=== PATIENT | male | born 1970 | race Caucasian/White ===

== ENCOUNTER → 2017-12-31 10:44 | Outpatient (CLI) | payer OTHER, SELFPAY ==
--- NOTE | 2017-12-31 | DI.ECHO.S_ITS ---
[facility] +---------+ : : [address] : : : : [id number] : : : : Phone: [phone]+ Echocardiogram Report + + :Name: CODY DANIELLE Study Date: 12/31/2017 Height: 68 in : :[facility] Exam Location: [facility] Weight: 185 lb : : Gender: Male BSA: 2.0 m2 : :: 1970 Age: 47 yrs BP: 118/80 mmHg: :Reason For Study: CHEST PAIN : : Performed By: Erwin Gilmore : :Referring: DARRYL CASTILLO : + + Interpretation Summary 1. Normal left ventricular size, wall thickness and systolic function with an estimated EF of 60-65% 2. Normal right ventricular size and systolic function. 3. No valvular pathology appreciated. There is no old study available for comparison Procedure: A two-dimensional transthoracic echocardiogram with color flow and Doppler was performed. The study quality was technically good. There is no prior echocardiogram noted for this patient. The patient was in normal sinus rhythm during the exam. Left Ventricle: The left ventricle is normal in size. There is normal left ventricular wall thickness. The ejection fraction is estimated to be 60-65%. No focal wall motion abnormalities appreciated. Right Ventricle: The right ventricle is normal in size and function. Atria: Both atria are normal in size. no color doppler evidence for an ASD. Mitral Valve: The mitral valve is normal in structure and function. There is trace mitral regurgitation. Aortic Valve: The aortic valve is trileaflet. The aortic valve opens well. There is trace aortic regurgitation. Tricuspid Valve: The tricuspid valve leaflets are thin and pliable. There is a trace or physiologic amount of tricuspid regurgitation. Pulmonary artery pressures cannot be estimated because of the lack of a measurable TR jet velocity. Pulmonic Valve: The pulmonic valve is normal in structure and function. There is trace pulmonic regurgitation. Great Vessels: The aortic root is normal size. The dimensions of the ascending aorta are normal. The IVC is of normal diameter and collapses greater than 50% with a sniff. This suggests a low right atrial pressure of 3 mm Hg. Pericardium/ Pleura There is no pericardial effusion. There is no pleural effusion. MMode/2D Measurements & Calculations LVIDd: 4.6 cm Ao root diam: 3.4 cm LVIDs: 3.1 cm Aortic Jxn: 2.6 cm FS: 31.6 % asc Aorta Diam: 3.3 cm EPSS: 0.21 cm Ao Arch Diam (Prox Trans): 2.9 cm IVSd: 0.96 cm LVPWd: 1.0 cm LV quevedo. diameter/BSA (cm/m^2): 2.3 LV sys. diameter/BSA (cm/m^2): 1.6 LA dimension: 3.6 cm RA long axis: 4.7 cm LA A2 area: 18.5 cm2 RA area: 14.3 cm2 LA A4 area: 16.1 cm2 RA vol: 37.5 ml LA length (vol): 5.1 cm RA : 19.0 ml/m2 LA vol: 49.3 ml IVC diam: 1.7 cm LA vol index: 24.9 ml/m2 Doppler Measurements & Calculations Ao V2 max: 105.5 cm/sec MV E max regis: 57.8 cm/sec Ao V2 mean: 74.5 cm/sec MV A max regis: 53.6 cm/sec Ao max P.5 mmHg MV E/A: 1.1 Ao mean P.4 mmHg Med Peak E' Regis: 14.0 cm/sec Ao V2 VTI: 16.9 cm E/E' med: 4.1 MV dec time: 0.20 sec PA V2 max: 88.0 cm/sec PA V2 mean: 59.8 cm/sec PA mean P.6 mmHg PA pr(Accel): 31.6 mmHg PA Accel Time: 0.10 sec Reading Physician:LANDON
== END ==
PROVIDERS: Visit Provider Physician Assistant
DX: R07.9 Chest pain, unspecified (principal)
CPT/HCPCS: 93306

== ENCOUNTER → 2021-03-14 12:29 | Outpatient (CLI) | payer OTHER, SELFPAY ==
--- NOTE | 2021-03-14 | DI.MRI.S_ITS ---
PROCEDURE: MR HEAD/BRAIN WO CON INDICATIONS: Other symptoms and signs involving emotional state TECHNIQUE: Noncontrast axial T1 spin echo, axial T2 fast spin echo, sagittal and axial FLAIR, coronal T2 fast spin echo, axial gradient echo, axial diffusion and ADC through the brain. COMPARISON: None. FINDINGS: Image quality: Excellent. CSF Spaces: Basal cisterns are patent. No extra-axial fluid collections. Ventricles are normal in size and shape. Brain: No intracranial masses or hemorrhage. Gonzalez/white matter interface is normal. Brainstem appears normal. Diffusion-weighted images demonstrate no acute ischemic insult. No chronic ischemic insults. Normal intravascular flow voids are present. Skull and face: Calvarium has normal marrow signal. Orbits appear normal. Sinuses: Large mucous retention cyst versus polyp noted in the right maxillary sinus. The mastoids are clear. IMPRESSION: 1. No intracranial disease process. 2. No abnormal intracranial mass or mass effect. 3. No abnormal intracranial signal. 4. No areas of encephalomalacia. Dictated by: Tessa Johnston MD, PhD on 03/14/2021 at 13:33 Approved by: Tessa Johnston MD, PhD on 03/14/2021 at 13:37
== END ==
PROVIDERS: Referring Provider Family Medicine; Visit Provider Family Medicine
DX: R45.89 Other symptoms and signs involving emotional state (principal)
CPT/HCPCS: 70551

== ENCOUNTER → 2022-11-03 13:00 | Outpatient (CLI) | payer OTHER, SELFPAY ==
--- NOTE | 2022-11-03 | DI.MRI.S_ITS ---
PROCEDURE: MR ABDOMEN WO/W CON INDICATIONS: ABNORMAL CT OF PANCREAS TECHNIQUE: Coronal HASTE, axial 2D FLASH in- and [id number]; axial breath-hold T2 FSE with fat saturation from the hepatic dome to the iliac crests. Oblique coronal thin-slice and radial thick slab HASTE through the biliary system. Dynamic axial VIBE during administration of contrast. Post-contrast coronal VIBE or 2D FLASH with fat saturation from the hepatic dome to the iliac crests. Optional diffusion weighted imaging and ADC may be performed. COMPARISON: CT 08/26/2022. FINDINGS: Image quality: Excellent. Pancreas and biliary system: Pancreas has a normal T1 hyperintense signal throughout. No pancreatic ductal dilation. No solid mass. There is mild interspace to fat, with relative sparing of the tail. No abnormal foci of restricted diffusion. No biliary dilation. Solid organs: Liver is normal in size and enhancement. Gallbladder is unremarkable. Spleen is normal in size and enhancement. No adrenal nodules. Kidneys are normal in size and enhancement, without hydronephrosis. Nodes and vessels: No retroperitoneal or mesenteric adenopathy by size criteria. Aorta and inferior vena cava are normal in size. Bowel and peritoneum: Unenhanced bowel loops are normal in caliber throughout. No free fluid. Lung bases: No basal pleural effusions. Heart size is normal. Bones and soft tissues: No ventral hernias. Bone marrow is normal in overall signal. IMPRESSION: There is mild interspace to fat within the pancreatic parenchyma, with relative sparing of the tail. No distinct mass or pancreatic ductal dilation present to suggest underlying mass. Dictated by: Emory Hanna M.D. on 11/03/2022 at 16:37 Approved by: Emory Hanna M.D. on 11/03/2022 at 16:40
== END ==
PROVIDERS: Referring Provider Nurse Practitioner Family; Visit Provider Nurse Practitioner Family
DX: R93.2 Abnormal findings on diagnostic imaging of liver and biliary tract (principal)
CPT/HCPCS: 74183

== ENCOUNTER → 2024-09-21 12:25 | Outpatient (CLI) | payer OTHER, SELFPAY ==
--- NOTE | 2024-09-21 | DI.RAD.S_ITS ---
PROCEDURE: XR CERVICAL SPINE 4V OR 5V INDICATIONS: NECK PAIN TECHNIQUE: 5 views of the cervical spine acquired. COMPARISON: None. FINDINGS: Bones: Vertebral body height and alignment maintained. Normal bone mineral density and craniovertebral relationships. Disc space narrowing and arthropathy noted in the mid to lower cervical spine moderate C4-5 bilateral and C3-4 left foraminal stenosis. Soft tissues: No prevertebral soft tissue swelling. IMPRESSION: Degenerative disc disease and arthropathy associated with foraminal stenosis C3-4 and C4-5 Approved by: Vic Key M.D. on 09/22/2024 at 13:30
--- NOTE | 2024-09-21 12:35 | DI.RAD.S_ITS ---
PROCEDURE: XR FOOT RT MIN 3V INDICATIONS: BI FOOT PAIN TECHNIQUE: 3 views of the foot were acquired. COMPARISON: None. FINDINGS: Bones: No fractures or dislocations. No suspicious bony lesions. Healed 2nd metatarsal probable osteotomy. Soft tissues: No tibiotalar joint effusion. Achilles tendon appears normal. IMPRESSION: No acute bony abnormality. Healed instrumented 2nd metatarsal probable osteotomy. No complication. Approved by: Vic Key M.D. on 09/22/2024 at 13:33
--- NOTE | 2024-09-21 12:35 | DI.RAD.S_ITS ---
PROCEDURE: XR FOOT LT MIN 3V INDICATIONS: BI FOOT PAIN TECHNIQUE: 3 views of the foot were acquired. COMPARISON: None. FINDINGS: Bones: No fractures or dislocations. No suspicious bony lesions. Instrumented 2nd metatarsal healed fracture or osteotomy. No hardware failure. Soft tissues: No tibiotalar joint effusion. Achilles tendon appears normal. IMPRESSION: No acute bony abnormality. Instrumented 2nd metatarsal healed fracture or osteotomy. No complication. Approved by: Vic Key M.D. on 09/22/2024 at 13:31
--- NOTE | 2024-09-21 12:45 | DI.RAD.S_ITS ---
PROCEDURE: XR KNEE LT 1TO2V INDICATIONS: BI KNEE PAIN TECHNIQUE: 2 views of the knee were acquired. COMPARISON: None. FINDINGS: Bones: No fractures or dislocations. No suspicious bony lesions. Soft tissues: No joint effusion. No suspicious soft tissue calcifications. IMPRESSION: No acute bony abnormality or significant effusion. Approved by: Vic Key M.D. on 09/22/2024 at 13:41
--- NOTE | 2024-09-21 12:45 | DI.RAD.S_ITS ---
PROCEDURE: XR KNEE RT 1TO2V INDICATIONS: BI KNEE PAIN TECHNIQUE: 2 views of the knee were acquired. COMPARISON: None. FINDINGS: Bones: No fractures or dislocations. No suspicious bony lesions. Soft tissues: No joint effusion. No suspicious soft tissue calcifications. IMPRESSION: No acute bony abnormality or significant effusion. Approved by: Vic Key M.D. on 09/22/2024 at 13:42
--- NOTE | 2024-09-21 12:51 | DI.RAD.S_ITS ---
PROCEDURE: XR SHOULDER LT MIN 2V INDICATIONS: BI SHOULDER PAIN TECHNIQUE: 4 views of the shoulder were acquired. COMPARISON: None. FINDINGS: Bones: No fractures or dislocations. No suspicious bony lesions. Visualized ribs appear intact. Soft tissues: No suspicious soft tissue calcifications. IMPRESSION: No acute bony abnormality. Approved by: Vic Key M.D. on 09/22/2024 at 13:55
--- NOTE | 2024-09-21 12:51 | DI.RAD.S_ITS ---
PROCEDURE: XR SHOULDER RT MIN 2V INDICATIONS: BI SHOULDER PAIN TECHNIQUE: 4 views of the shoulder were acquired. COMPARISON: None. FINDINGS: Bones: No fractures or dislocations. No suspicious bony lesions. Visualized ribs appear intact. Mild old healed right rib fracture. No pneumothorax Soft tissues: No suspicious soft tissue calcifications. IMPRESSION: No acute bony abnormality. Approved by: Vic Key M.D. on 09/22/2024 at 13:43
== END ==
PROVIDERS: Referring Provider Nurse Practitioner Primary Care; Visit Provider Nurse Practitioner Primary Care
DX: M48.02 Spinal stenosis, cervical region (principal); M47.812 Spondylosis without myelopathy or radiculopathy, cervical region; M79.671 Pain in right foot; M79.672 Pain in left foot; M50.321 Other cervical disc degeneration at C4-C5 level; M25.561 Pain in right knee; M25.562 Pain in left knee; M25.511 Pain in right shoulder; M25.512 Pain in left shoulder
CPT/HCPCS: 72050; 73030; 73560; 73630